=== PATIENT | female | born 1960 | race Two or more races ===

== ENCOUNTER 2020-02-24 17:28 | Emergency (ER) | payer OTHER ==
[~2020-02-24] VITALS: Ht 1 cm; Wt 0.5 kg
[~2020-02-24 17:28] MED LIST: BUME1TAB3 PO; CARV6.2551 PO; GABA-339 PO; GLIP10TA9 PO; HYDR50TA15 PO; ISOS30TA4 PO
[2020-02-24] MEDS ORDERED: EPINEPHrine HCL 1 MG/10 ML SYRG IV ONE ×3 (17:29→19:30)
[2020-02-24] MEDS ORDERED: CALCIUM CHLOR(10%) 100MG/ML 10ML SYRINGE IV ONE (17:29)
[2020-02-24] MEDS ORDERED: NOREPINEPHRINE 8 MG/250ML KIT 250 ML IV ONE ×2 (18:13→18:15)
[2020-02-24] MEDS ORDERED: SODIUM BICARBONATE 8.4% INJ 50ML SYRINGE ONE (18:16)
[2020-02-24] MEDS ORDERED: NOREPINEPHRINE 8 MG/250ML KIT 250 ML IV SCH (18:30)
[2020-02-24] MEDS ORDERED: SODIUM BICARBONATE 50ML VIAL 50 ML in SOD CHL 0.45% 1,000 ML IV ONE (18:30)
[2020-02-24] MEDS ORDERED: SODIUM CHLORIDE 0.9% 3,350 ML IV ONE (18:30)
[2020-02-24] MEDS ORDERED: SODIUM BICARBONATE 8.4 % INJ 50ML VIAL IV ONE ×2 (18:30→19:15)
[2020-02-24] MEDS ORDERED: EPINEPHrine HCL 1 MG/10 ML SYRG ONE (18:41)
[2020-02-24 18:46] LABS: Basophils # (auto) 0.1 10 ^3/uL (0-0.2); Eosinophils # (auto) 0 10 ^3/uL (0-0.8); Hemoglobin 10.5 g/dL (12.2-16.2); Lymphocytes # (auto) 2.8 10 ^3/uL (0.4-5.4); Monocytes # (auto) 0.2 10 ^3/uL (0-1.3)
[2020-02-24 18:48] LABS: Basophils % (auto) 0.7 % (0.0-2.0); Eosinophils % (auto) 0.3 % (0.0-7.0); Hematocrit 31.6 % (36.0-46.0); Lymphocytes % (auto) 26.6 % (10.0-50.0); Mean Corpuscular Hemoglobin 35.1 pg (28.0-32.0); Mean Corpuscular Hgb Conc. 33.1 g/dL (32.0-36.0); Monocytes % (auto) 2.2 % (0.0-12.0); Neutrophils # (auto) 7.5 10 ^3/uL (1.6-8.6); Neutrophils % (auto) 70.2 % (37.0-80.0); Nucleated Red Blood Cells % 0.1 %; Platelet Count (auto) 111 10^3/uL (140-450); Red Blood Cells 2.98 10^6/uL (4.0-5.20); Red Cell Distribution Width 14.5 % (11.8-14.3); White Blood Cell 10.7 10^3/uL (4.4-10.8)
[2020-02-24 18:58] LABS: INR 1.05 (0.9-1.15)
[2020-02-24 19:05] LABS: Albumin 1.8 g/dL (3.4-5.0); BUN/Creatinine Ratio 3.4; Calcium 7.3 mg/dL (8.5-10.1); Magnesium 1.9 mg/dL (1.6-2.6); Potassium 3.8 mmol/L (3.5-5.1)
[2020-02-24 19:07] LABS: Lactic Acid w/Reflex 12.8 mmol/L (0.4-2.0)
[2020-02-24 19:10] LABS: Bilirubin, Total 0.3 mg/dL (0.2-1.0); Total Protein 5.1 g/dL (6.4-8.2)
[2020-02-24] MEDS ORDERED: VANCOMYCIN 1GM/250ML 250 ML IV ONE (19:15)
[2020-02-24] MEDS ORDERED: EPINEPHrine HCL 250 ML IV SCH (19:30)
[2020-02-24] MEDS ORDERED: EPINEPHrine HCL 250 ML IV ONE (19:31)
[2020-02-24 19:47] VITALS: BP 62/39
== END 2020-02-24 19:51 | disposition expired ==
LOC: EDBD 17:28 → ER 17:28
DX: S06.9X0A Unspecified intracranial injury without loss of consciousness, initial encounter (principal); A41.89 Other specified sepsis; I46.9 Cardiac arrest, cause unspecified; U07.1 COVID-19; J80 Acute respiratory distress syndrome; E11.9 Type 2 diabetes mellitus without complications; I10 Essential (primary) hypertension; Z79.899 Other long term (current) drug therapy; X58.XXXA Exposure to other specified factors, initial encounter; Y93.89 Activity, other specified; Y92.89 Other specified places as the place of occurrence of the external cause; Y99.8 Other external cause status
CPT/HCPCS: 36415; 36556; 36600; 71045; 76937; 80053; 82805; 83605; 83735; 83880; 84484; 85025; 85610; 85730; 87040; 87070; 87077; 87186; 87205; 92950; 96365; 96375; 99291; J0171; 94002